=== PATIENT | female | born 1955 | race Caucasian/White ===

== ENCOUNTER 2023-04-23 10:14 | Outpatient (AMB) | payer BC, SELFPAY ==
--- NOTE | 2023-04-23 13:37 | MHC.OFFWIV ---
Intake Vital Signs 04/23/23 13:39 Height 5 ft 8 in Weight 183 lb 9 oz BMI 27.9 BP 120/90 H Blood Pressure Location Lt brachial Position Sitting Pulse 76 Pulse Source Pulse Oximeter Temp 98 F Temp Source Oral Pulse Oximetry (%) 99 Oxygen Delivery Method Room Air Intake Visit Reasons: EP , cough, ear pain, suspects covid ([id number]) Intake Note: Patient here because she has covid as she did a at home test. She needs documentation as she was suppose to leave for a cruise tomorrow and they need proof she is positive for covid. Patient Tobacco Use Status: Never used Tobacco Allergies Sulfa (Sulfonamide Antibiotics) Adverse Reaction (Intermediate, Verified 04/23/23 13:42) Rash IV Contrast Adverse Reaction (Intermediate, Uncoded 04/23/23 13:42) rash Do you need a note to return to daycare/school/sports/work: Yes HPI EP , cough, ear pain, suspects covid ([id number]) HPI Details Patient is a 68-year-old female with a history of asthma that is usually only exacerbated with allergies, who comes to the walk-in clinic a few days after starting with nasal congestion, mild dry cough, ear pressure, postnasal drip, and body aches. She states that she tested positive for COVID at home, but needs lab documentation for her to submit this for reimbursement for her planned cruise tomorrow. She recently came back from [place] and states that she started with symptoms soon after. She denies significant cough, shortness of breath or chest pain or pressure, nausea or vomiting, dizziness or weakness, current myalgias or malaise, current fever or chills, or other significant associated symptoms. [facility] Social History Patient Tobacco Use Status: Never used Tobacco Review of Systems Const All systems reviewed & are unremarkable except as noted in HPI and below Physical Exam Vital Signs: Last Vital Signs Temp 98 F 04/23/23 13:39 Pulse 76 04/23/23 13:39 BP 120/90 H 04/23/23 13:39 Pulse Ox 99 04/23/23 13:39 Oxygen Delivery Method Room Air 04/23/23 13:39 BMI result Body Mass Index 27.9 Const General: cooperative, healthy appearing, comfortable, no acute distress, alert, awake, Physically active and well groomed; No anxious, diaphoretic, intoxicated appearing or poor hygiene Nutritional Appearance: average body habitus Orientation/consciousness: oriented to person Limitations: no limitations HEENT Head: Yes normal to inspection, Yes normocephalic and Yes atraumatic Ears: hearing grossly normal bilaterally, external ears normal, EAC's normal and TM abnormal with fluid behind the TM General nose exam: Normal external nose present, Normal septum present and Nasal discharge present Face and sinus: Yes normal facial exam, Yes sinuses nontender and Yes face symmetric Mouth: Normal oral and palatal mucosa present, lip normal and tongue normal Throat: Yes posterior oropharynx normal, Yes abnormal tonsil (mildly erythematous bilaterally), No peritonsillar mass, No uvular edema and No cobblestoning Eyes General: appearance normal, both eyes and all related structures Neck Neck: Yes normal visual inspection, Yes full ROM, Yes no lymphadenopathy, Yes trachea midline, Yes supple and No anterior neck swelling Chest Chest palpation & inspection: normal palpation of entire chest wall Resp Effort & Inspection: normal respiratory effort, able to speak in complete sentences, normal respiratory pattern, no audible wheezes, Actively coughing (Occasional dry) Quality: dry, respiratory effort not decreased, no grunting, not labored, no nasal flaring, no pursed lip breathing, no respiratory distress, no retractions, no tripod positioning, no use of accessory muscles, No prolonged expiratory phase and symmetric chest movement Auscultation: clear to auscultation bilaterally, no crackles, no rales, no rhonchi, no wheezes, lung sounds not diminished and No rub present Cardio Palpation: normal PMI Rate: regular rate Rhythm: regular rhythm Heart sounds: S1 normal heart sound present and S2 normal heart sound present Skin Other: Good color, warm and dry Neuro General: oriented to person Psych Appearance: grossly normal Mental Status: mental status grossly normal Speech and movement: Normal speech and movement present Affect: normal affect Attitude: cooperative Thought process: Normal thought process present Insight: Good insight present (Psych) Judgement: Good judgement present (Psych) Assessment & Plan Assessment & Plan (1) Viral syndrome: Code(s): B34.9 - Viral infection, unspecified Plan Patient is a 68-year-old female with acute viral syndrome which is mildly exacerbating her asthma, however she states that she does not feel like she needs prednisone at this time, for which I concur. She does not seem to be having an acute attack, and she had only has a mild intermittent cough with no wheezing or signs or symptoms of dyspnea on exam. Patient states that she only presented for evaluation as her ears had some pressure bilaterally, and she needed proof of having COVID for reimbursement of a planned cruise tomorrow. She denies shortness of breath or chest pain, chest pressure, and no significant cough. She is pending PCR testing to backup her rapid COVID test, as well as to rule out flu and RSV. Paxlovid was considered due to her asthma history, but she declines it, as she states that she already has enough GI issues . I did write her for a course of Augmentin in case the pressure in her ears worsens, or she develops fever or chills or other associated symptoms. A note was given to her for the [employer] for her reimbursement. She will follow up as needed if symptoms persist or worsen Orders: Orders SARS-CoV2/FLU/RSV Today R05.9 - Cough, unspecified Medications: New amoxicillin-pot clavulanate 875-125 mg 1 tab PO BID 10 tabs 0RF Coding Level of Care Code Est Pt Level 4 (21710) Diagnoses Viral syndrome B34.9
[2023-04-23 13:39] VITALS: BP 120/90; PULSE 76; TEMP 36.6; O2SAT 99; BMI 27.9
== END 2023-04-23 14:25 | disposition home or self-care (01) ==
PROVIDERS: PCP Internal Medicine; Visit Provider Physician Assistant Medical
DX: B34.9 Viral infection, unspecified (principal)
CPT/HCPCS: 99214

== ENCOUNTER 2023-04-23 15:50 | Outpatient (REF) | payer BC, SELFPAY ==
[2023-04-23 16:43] LABS: Influenza A PCR NEGATIVE (Negative); Influenza B PCR NEGATIVE (Negative); Resp Syncy Virus RNA Qual PCR NEGATIVE (Negative); SARS COV2 PCR INHOUSE POSITIVE (Negative)
== END 2023-04-23 15:51 | disposition home or self-care (01) ==
LOC: HO.HMGCLNP 15:50
PROVIDERS: Visit Provider Physician Assistant Medical
DX: Z11.52 Encounter for screening for COVID-19 (principal); Z20.822 Contact with and (suspected) exposure to COVID-19; R05.9 Cough, unspecified
CPT/HCPCS: 0241U

== ENCOUNTER 2025-02-01 14:50 | Emergency (ER) | payer BC, SELFPAY ==
--- NOTE | ~2025-02-01 | XR_ITS ---
EXAMINATION: X-ray right ankle X-ray left ankle CLINICAL INFORMATION: Fall, deformity COMPARISON: None TECHNIQUE: Right ankle 3 views. Left ankle 3 views. FINDINGS: Right ankle: Acute, mildly displaced fracture of the distal fibular diametaphysis. The fracture plane appears to extend to the level of the syndesmosis. No tibial fracture is seen. Ankle mortise is maintained. No talar dome OCD. The dorsal navicular bone spurring. Plantar calcaneal spur. Lateral soft tissue swelling. Small tibiotalar joint effusion. Left ankle: Acute, transverse mildly distracted/displaced fracture of the lateral malleolus. No tibial fracture is seen. Ankle mortise appears maintained. No talar dome OCD. Small tibiotalar joint effusion. Plantar calcaneal spur. Lateral soft tissue swelling. XR/XR ankle LT 2V IMPRESSION: Right ankle: Acute, mildly distracted/displaced distal fibular diametaphyseal fracture. Left ankle: Acute, mildly distracted/displaced lateral malleolar fracture. Electronically signed by: Gordy Landa MD 02/01/2025 03:46 PM EDT
--- NOTE | ~2025-02-01 | XR_ITS ---
EXAMINATION: X-ray right ankle X-ray left ankle CLINICAL INFORMATION: Fall, deformity COMPARISON: None TECHNIQUE: Right ankle 3 views. Left ankle 3 views. FINDINGS: Right ankle: Acute, mildly displaced fracture of the distal fibular diametaphysis. The fracture plane appears to extend to the level of the syndesmosis. No tibial fracture is seen. Ankle mortise is maintained. No talar dome OCD. The dorsal navicular bone spurring. Plantar calcaneal spur. Lateral soft tissue swelling. Small tibiotalar joint effusion. Left ankle: Acute, transverse mildly distracted/displaced fracture of the lateral malleolus. No tibial fracture is seen. Ankle mortise appears maintained. No talar dome OCD. Small tibiotalar joint effusion. Plantar calcaneal spur. Lateral soft tissue swelling. XR/XR ankle RT 2V IMPRESSION: Right ankle: Acute, mildly distracted/displaced distal fibular diametaphyseal fracture. Left ankle: Acute, mildly distracted/displaced lateral malleolar fracture. Electronically signed by: Gordy Landa MD 02/01/2025 03:46 PM EDT
[2025-02-01 15:05] VITALS: BP 129/81; BP 180/90; PULSE 79; PULSE 90; RESP 14; TEMP 36.6; O2SAT 99; BMI 28.4
--- NOTE | 2025-02-01 16:05 | ED_ITS ---
HPI - Extremity Injury (Lower) General Chief Complaint: Extremity Injury, Lower Stated Complaint: SLIP AND FALL,BILAT ANKLE PAIN PER EMS Time Seen by Provider: 02/01/25 16:03 History of Present Illness ED Provider: Antoine Do MD HPI Narrative: [age] female relatively healthy was going down a flight of steps rolled the left ankle is subsequently planned to the right foot and rolled the right foot. Bilateral lateral malleoli/ankle and foot painful and swollen. Significant pain when bearing weight she feels like she almost passed out due to the pain level. No skin color change of the distal foot Related Data Home Medications ?Medication ?Instructions ?Recorded ?Confirmed albuterol sulfate 90 mcg/actuation inhalation 04/23/23 aerosol inhaler budesonide-formoterol HFA 160 inhalation 04/23/23 mcg-4.5 mcg/actuation aerosol inhaler (Symbicort) carisoprodol 350 mg tablet 350 mg PO BID 04/23/23 montelukast 10 mg tablet 10 mg PO DAILY 04/23/23 Previous Rx's ?Medication ?Instructions ?Recorded amoxicillin 875 mg-potassium 1 tab PO BID #10 tabs clavulanate 125 mg tablet Allergies Allergy/AdvReac Type Severity Reaction Status Date / Time Sulfa (Sulfonamide AdvReac Intermediate Rash Verified 02/01/25 15:10 Antibiotics) IV Contrast AdvReac Intermediate rash Uncoded 02/01/25 15:10 [facility] Social History Social History Patient Tobacco Use Status: Never used Tobacco Smoked in Last 30 Days: No Use of substances other than those prescribed or required for medical reasons: No Advance Directives: Yes Advance Directives Information Provided: No Advance Directives on File: No Do you have a plan to hurt others: No Plan Physical Exam Exam: Exam: GENERAL: Well appearing. No apparent distress. Alert. HEAD/NECK: No visual trauma. EYES: Normal to inspection. No conjunctival erythema. No discharge. ENMT: Hearing grossly normal. External nose normal. RESPIRATORY: Respiratory effort normal. CARDIOVASCULAR: Additional details (Grossly well perfused). SKIN: No jaundice. NEUROLOGICAL: Alert. Moving all extremities x4. Additional details (No gross motor deficits. Normal tone. ). PSYCHIATRIC: Alert. Appearance appropriate for situation. MSK: Bilateral ankles with swelling of the lateral malleoli ecchymosis. Apparent intact talofibular ligaments. Well-perfused feet. No calcaneal tenderness. Ankles grossly stable Vital Signs: Vital Signs: Last Vital Signs Temp 97.9 F 02/01/25 18:15 Pulse 79 02/01/25 18:15 Resp 14 02/01/25 18:15 BP 129/81 02/01/25 18:15 Pulse Ox 99 02/01/25 18:15 O2 Del Method Room Air 02/01/25 18:15 BMI result Body Mass Index 28.4 Medications Administered Discontinued Medications Generic Name Dose Route Start Last Admin Trade Name Freq PRN Reason Stop Dose Admin Acetaminophen 975 mg 02/01/25 16:38 02/01/25 16:50 Acetaminophen 325 Mg Tablet PO 02/01/25 16:39 975 mg ONCE ONE Administration Medical Decision Making Medical Decision Making MDM Narrative: Medical Decision Making: [age] female with ankle roll. No head strike or other trauma. Bilateral ankle roll with bilateral fibular fractures. No unstable fracture of the ankle. Neurovascularly intact feet bilaterally. Walking boots, wheelchair, case management consulted Preliminary Favored Differential Diagnosis: Ankle fracture, sprain among additional considered etiologies Testing Interpreted Independently: ?See below for details Radiology or Lab testing Results Reviewed: ?See below for details Consults: Case management consulted for recommendations for home care and follow up Independent Historians/External Chart Reviews: ?See below for details Social Determinants of Health Impacting MDM/Planning: ?See below for details Discharge Plan Discharge Clinical Impression: Fibula fracture Patient Disposition: Home, Self-Care Instructions: Leg Fracture (ED), Crutch Instructions (ED) Additional Instructions: You suffered a right and left, right is slightly worse than left fibular fracture at the ankle. This is not a weight supporting bone and you can bear weight on both limbs as tolerated. We have provided walking boot for comfort. Keep your legs elevated when you are able to with ice. Use Tylenol or NSAIDs as appropriate with your underlying medical history. Orthopedics can be called to schedule an established follow up Prescriptions: No Action budesonide-formoterol [Symbicort] 160-4.5 mcg/actuation HFA aerosol inhaler inhalation albuterol sulfate 90 mcg/actuation HFA aerosol inhaler inhalation carisoprodol 350 mg tablet 350 mg PO BID montelukast 10 mg tablet 10 mg PO DAILY amoxicillin-pot clavulanate 875-125 mg tablet 1 tab PO BID Qty: 10 0RF Referrals: [facility] Orth[facility] Surgeons [Provider Group] Interventions: ED Discharge Assessment Last Done: 02/01/25 18:15 Discharge Date/Time: 02/01/25 18:27 Print Language: Citizen Of [place]
--- OUTSIDE RECORDS SUMMARY | 2025-02-01 17:02 | XMS_ITS | Patient Health Record ---
Author Organization [facility] Address [address] [place] [address] Care Team Providers Care Scourer Name Role Phone Robby An MD Primary Care Provider Grey Santacruz Unavailable [phone] Allergies Allergen (clinical drug ingredient) Drug/Non Drug Allergy documented on EMR Reaction Allergy Type Onset Date Status sulfamethoxazole / trimethoprim Bactrim rash Drug Allergy Active Biaxin Unknown Drug Allergy Active Cranberry hives Drug Allergy Active erythromycin Erythromycin Unknown Drug Allergy A ctive valacyclovir Valtrex rash Drug Allergy Acti ve azithromycin Azithromycin Unknown Drug Allergy A ctive codeine Codeine headache,nause a Drug Allergy Active Iodinated contrast media (substance) Iodinated Diagnostic Agents headache,hives Drug Allergy Active morphine Morphine vomiting Drug Allergy Active Reason For Referral No Information Medications Medication SIG (Take, Route, Frequency, Duration) Notes Start Date End Date Status Zantac Unknown Fluticasone Propionate HFA 110 MCG/ACT 1 puff Inhalation Twice a day Unknown NexIUM 20 MG 1 capsule Orally Onc e a day; Duration: 30 day(s) Unknown Advil Active Vitamin D3 Active Carisoprodol 350 MG (Schedule IV Drug) TAKE 1 TABLET BY MOUTH 3 TIMES A DAY NEEDED FOR PAIN Oral; Duration: 10 Active Walking Boot/Pneumatic As directed Wear Daily; Duration: Until further notice Not-Taking Biotin Active Ibuprofen 800 MG 1 tablet Orally Thre e times a day; Duration: 30 day(s) Not-Taking Flovent HFA Unknown Singulair Active Symbicort inhaler Active Turmeric Active Albuterol 90mcg prn Acti ve Vitamin B12 Active Folic Acid Active Montelukast Sodium 10 MG TAKE 1 TABLET B Y MOUTH EVERY DAY Oral Active Physical Therapy . . . 2-3x/week; Duration: 3-4 weeks Active Move Free Joint Health Advance Active Rippey-3 Active Voltaren 1 % as directed Externally Active Immunizations Vaccine Route Administration Date Status Comme nts COVID-19 Pfizer BioNTech Vaccine Unknown 02/26/2021 Administered 1st 07/04/20 2nd 07/25/20 Social History Tobacco Use: Social History Observation Description Date Details (start date - stop date) Former Smoker NA - NA Tobacco Use/Smoking Question Answer Notes Are you a: former smoker Additional Findings: Tobacco Non-User Current no n-smoker Alcohol Screen Question Answer Notes Did you have a drink contain ing alcohol in the past year? Yes How often did you have a dri nk containing alcohol in the past year? 2 to 3 times a week (3 points) How many drinks did you have on a typical day when you were drinking in the past year? 1 or 2 drinks (0 point) How often did you have 6 or more drinks on one occasion in the past year? Never (0 point) Points 3 Interpretation Positive Tobacco use other than smoking: Question Answer Notes Are you an other tobacco user? No Plan Of Treatment Pending Test Test Name Order Date X ray : Foot, right 3V 04/19/2012 X ray : Foot, right 3V 10/21/2021 X ray : Foot, right 3V 06/02/2022 [id number]-Tsua Destruction, -08/09/2013 87645-Mtkn Destruction, 04-2410/10/2013 [id number]-Xdef Destruction, 04-2412/24/2013 92676-Mesn Destruction, 04-2403/14/2014 24335-Jhwn Destruction, 04-2402/20/2015 70370-Luto Destruction, 04-2401/20/2011 [id number]-Fhjq Destruction, 04-2403/03/2011 21977-Nrao Destruction, 04-2405/10/2011 30493-Whwd Destruction, 04-2406/09/2011 53521-Btgq Destruction, 04-2407/12/2011 15043-Vyji Destruction, 04-2408/09/2011 54318-Ksyt Destruction, 04-2409/13/2011 92452-Kkay Destruction, 12/06/2011 83633-Orab Destruction, -02/07/2012 23487-Nbkh Destruction, -04/19/2012, J0702- INJECT TENDON ORIGIN/INSER T 06/02/2022,[id number]-WHC TENDON SHEATH/LIGAMENT 1 05/14/2017 Insurance Providers Payer Name Payer Address Payer Phone Subscriber Number Group Number Insured Name Patient Relationship to Insured Coverage Start Date Coverage End Date [employer] 65 Medicare Preferred [address] [place] [address] [id number] Tova Tran lt Self - patient is the insured Medical (General) History Medical History History ICD Code asthma warts scarlet fever glaucoma fibromyalgia corns/calluses broken bones Arthritis Back,Hip,and Knee pain Reflux Mumps Chicken pox Diverticulitis Hiatal hernia chronic sinusitis Surgical History Surgery Date(Month/Year) tubal ligation 1981 orthoscopic knee surgery 11/2015 tonsillectomy colonoscopy 06/2022
--- OUTSIDE RECORDS SUMMARY | 2025-02-01 17:03 | XMS_ITS | Data Portability ---
Author Organization NELDA Art [facility] Address [address] [place] [address] Care Team Providers Care Senior Treasury Analyst Name Role Phone STEPHANY SNOW Primary Care Provider [phone] Assessment No assessment recorded. Plan of Treatment Reminders Order Date Submit Date Provider Last Modified By Organization Details Last Modified Time Details Appointments None recorded. Lab urinalysis , dipstick 2022 023 [email or web address] [facility], [address] [place] [address], [id number], 09:44:59 culture, urine 2022 023 [place] [facility], [address] [place] [address], [place], [address], 3 08:07:29 Referral None recorded. Procedures None recorded. Surgeries None recorded. Imaging None recorded. Medication Orders Macrobid 100 mg capsule 2022 023 [id number], [address] [place], [address], 09:45:03 Patient TargetsNo targets recorded. Patient Instructions Encounter Date Encounter Id Patient Instructions Last Modified By Organization Details Last Modified Time 06/05/2022 [id number] We recommend you get a repeat urinalysis in 2 weeks to ensure that any abnormalities have resolved. If urine abnormalities persist, you will likely need further testing or treatment. We will contact you within 3 to 5 days with the results of your lab test. If you have not heard back from us within that time frame, please feel free to contact our office regarding your results. Go to the Emergency Department immediately if your symptoms worsen or if you develop new symptoms that concern you. Drink plenty of fluids You should follow-up with your PCP in 4-5 days, or at any time if your condition does not improve or worsens. Any acute change should prompt a visit to the nearest Emergency Department. [email or web address] Not available 06/05/2022 09:40:14 Reason for Referral None Reported. Results Created Date Observation Date Name Description Value Unit Range Abnormal Flag Note LastModifiedBy Organization Detail LastModifiedTime 06/05/1906/09/2022 URINE CULTU RE, ROUTI NE urine culture, routine FINAL REPORT abnormal Not Available [facility] ([facility]) [address] [facility], [place], [address], 06/09/2022 14:06:45 06/05/19 23 06/09/2022 URINE CULTU RE, ROUTI NE result 1 ESCHER ICHIA COLI abnormal Cefaz marj <=4 ug/mL Cefaz marj with an YARA <=16 predi cts susce ptibi lity to the oral agent s cefac eloisa, cefdi edy, cefpo doxim e, cefpr ozil, cefur oxime , cepha lexin , and lorac arbef when used for thera py of uncom plica ernesto urina ry tract infec tions due to E. coli, Klebs iella pneum oniae , and Prote us mirab ilis. Great er than 100,0 00 colon y formi ng units per mL Not Available [facility] ([facility]) [address] [facility], [place], [address], 06/09/2022 14:06:45 06/05/1906/09/2022 URINE CULTU RE, ROUTI NE antimicrobia l susceptibili ty COMMEN T S = Susce ptibl e; I = Inter media te; R = Resis tant P = Posit can; N = Negat can MICS are expre ssed in micro grams per mL Antib iotic RSLT# 1 RSLT# 2 RSLT# 3 RSLT# 4 Amoxi cilli n/Cla vulan ic Acid S Ampic illin S Cefep ngozi S Ceftr iaxon e S Cefur oxime S Cipro floxa warren S Ertap enem S Genta micin S Imipe nem S Levof loxac in S Merop enem S Nitro furan toin S Piper acill in/Ta zobac land S Tetra cycli ne S Tobra mycin S Trime thopr im/Casey lfa S Not Available [facility] ([facility]) [address] [facility], [place], [address], 06/09/2022 14:06:45 06/05/19 23 06/05/2022 urina lysis , dipst ick Unknown Analyte Normal = light yellow Not Available susan ureña [address], [place], [address], 06/05/2022 09:13:17 06/05/19 23 06/05/2022 urina lysis , dipst ick Unknown Analyte Yellow Not Available jeanne [address], [place], [address], 06/05/2022 09:13:17 06/05/19 23 06/05/2022 urina lysis , dipst ick Unknown Analyte Normal = clear Not Available susan ureña [address], [place], [address], 06/05/2022 09:13:17 06/05/19 23 06/05/2022 urina lysis , dipst ick Unknown Analyte Clear Not Available jeanne [address], [place], [address], 06/05/2022 09:13:17 06/05/19 23 06/05/2022 urina lysis , dipst ick Unknown Analyte Normal = negati ve Not Available susan ureña [address], [place], [address], 06/05/2022 09:13:17 06/05/19 23 06/05/2022 urina lysis , dipst ick Unknown Analyte Negati ve Not Available susan ureña [address], [place], [place], [address], 06/05/2022 09:13:17 06/05/19 23 06/05/2022 urina lysis , dipst ick Unknown Analyte Normal = Negati ve Not Available susan ureña [address], [place], [address], 06/05/2022 09:13:17 06/05/1906/05/2022 urina lysis , dipst ick Unknown Analyte Negati ve Not Available susan ureña [address], [place], [address], 06/05/2022 09:13:17 06/05/19 23 06/05/2022 urina lysis , dipst ick Unknown Analyte Normal = Negati ve Not Available susan ureña [address], [place], [address], 06/05/2022 09:13:17 06/05/19 23 06/05/2022 urina lysis , dipst ick Unknown Analyte Negati ve Not Available susan ureña [address], [place], [address], 06/05/2022 09:13:17 06/05/19 23 06/05/2022 urina lysis , dipst ick Unknown Analyte Normal = 1.010, 1.015, 1.020 Not Available susan ureña [address], [place], [address], 06/05/2022 09:13:17 06/05/19 23 06/05/2022 urina lysis , dipst ick Unknown Analyte 1.020 Not Available [address], [place], [address], 06/05/2022 09:13:17 06/05/19 23 06/05/2022 urina lysis , dipst ick Unknown Analyte Normal = Negati ve Not Available susan ureña [address], [place], [address], 06/05/2022 09:13:17 06/05/19 23 06/05/2022 urina lysis , dipst ick Unknown Analyte Large Not Available [facility] [address], [place], [address], 06/05/2022 09:13:17 06/05/19 23 06/05/2022 urina lysis , dipst ick Unknown Analyte Normal = 6.5, 7.0, 7.5, 8.0 Not Available [facility] [address], [place], [address], 06/05/2022 09:13:17 06/05/19 23 06/05/2022 urina lysis , dipst ick Unknown Analyte 6.5 Not Available [facility] [address], [place], [address], 06/05/2022 09:13:17 06/05/19 23 06/05/2022 urina lysis , dipst ick Unknown Analyte Normal = Negati ve Not Available susan ureña [address], [place], [address], 06/05/2022 09:13:17 06/05/19 23 06/05/2022 urina lysis , dipst ick Unknown Analyte Negati ve Not Available susan ureña [address], [place], [address], 06/05/2022 09:13:17 06/05/19 23 06/05/2022 urina lysis , dipst ick Unknown Analyte Normal = 0.2, 1.0 Not Available [address], [place], [address], 06/05/2022 09:13:17 06/05/19 23 06/05/2022 urina lysis , dipst ick Unknown Analyte 0.2 E.U./d L Not Available [address] [place] [address], [place], [address], 06/05/2022 09:13:17 06/05/19 23 06/05/2022 urina lysis , dipst ick Unknown Analyte Normal = Negati ve Not Available [address] [place] [address], [place], [address], 06/05/2022 09:13:17 06/05/19 23 06/05/2022 urina lysis , dipst ick Unknown Analyte Negati ve Not Available [address] [place] [address], [place], [address], 06/05/2022 09:13:17 06/05/1906/05/2022 urina lysis , dipst ick Unknown Analyte Normal = Negati ve Not Available [address] [place] [address], [place], [address], 06/05/2022 09:13:17 06/05/19 23 06/05/2022 urina lysis , dipst ick Unknown Analyte Small Not Available [address] [place] [address], [place], [address], 06/05/2022 09:13:17 Result Notes None recorded. Problems Name Problem SNOMED Code Status Onset Date Resolution Date Notes Provider Name and Address Organization Details Recorded Time Asthma 593640514 Active 2022 NELDA Raman - [facility] 09:16:12 Fibromyalgia 838703476 Active 2022 NELDA Raman [facility] 3 09:16:19 Problem Notes None recorded. Procedures Surgical History Date Name Laterality Status Provider Name and Address Organization Details Recorded Time operative procedure on knee completed Jennifer Jj [facility] 06/05/2022 09:19:11 tonsillectomy completed Jennifer Jj [facility] 06/05/2022 09:19:17 ligation of bilateral fallopian tubes completed Jennifer Jj [facility] 06/05/2022 09:19:29 Imaging Results None recorded. Procedure Notes None recorded. Medical Equipment None Reported. Allergies Allergen ID Allergen Name Allergen Category Reaction Reaction Severity Criticality Documentation Date Start Date Code Code System Note Provider Name and Address Organization Details Recorded Time Bactrim medicatio n rash Not available Not available 06/05/2022 71080 9 RxNorm Jennifer huntley [facility] 3 09:14:09 884156 Substance with sulfonami de structure and antibacte rial mechanism of action (substanc e) medicatio n hives Not available Not available 06/05/2022 65941 8003 SNOMED Jennifer huntley [facility] 3 09:14:21 Medications Name Sig Start Date Stop Date Status Note LastModified by Organization Details LastModified Time carisoprodo l 350 mg tablet TAKE 1 TABLET BY MOUTH TWICE A DAY active Not Available Not Available No t Available amoxicillin 500 mg capsule TAKE 2 CAPSULES BY MOUTH TWICE A DAY FOR 14 DAYS 06/05 completed Not Available Not Available Not Available prednisone 10 mg tablet TAKE 4 TABLETS FOR 3 DAYS, 3 TABLETS FOR 3 DAYS, 2 TABLETS FOR 3 DAYS AND 1 TABLET FOR 3 DAYS 06/05 completed Not Available Not Available Not Available azithromyci n 250 mg tablet TAKE 2 TABLETS BY MOUTH TODAY, THEN TAKE 1 TABLET DAILY FOR 4 DAYS 06/05 completed Not Available Not Available Not Available clarithromy warren 500 mg tablet TAKE 1 TABLET BY MOUTH EVERY 12 HOURS FOR 14 DAYS 06/05 completed Not Available Not Available Not Available ondansetron 8 mg disintegrat ing tablet TAKE 1 TABLET BY MOUTH 3 TIMES A DAY NEEDED FOR 7 DAYS active Not Available Not Available No t Available Macrobid 100 mg capsule Take 1 capsule every 12 hours by oral route with meals for 7 days. 2022 active Not Available Not Available Not Avai lable montelukast 10 mg tablet TAKE 1 TABLET BY MOUTH EVERY DAY active Not Available Not Available No t Available albuterol sulfate HFA 90 mcg/actuati on aerosol inhaler TAKE 2 PUFFS EVERY 6 HOURS NEEDED FOR WHEEZING FOR 90 DAYS active Not Available Not Available No t Available Symbicort 160 mcg-4.5 mcg/actuati on HFA aerosol inhaler INHALE 2 PUFFS BY MOUTH TWICE A DAY active Not Available Not Available No t Available Symbicort 80 mcg-4.5 mcg/actuati on HFA aerosol inhaler INHALE 2 PUFFS TWICE A DAY 06/05 completed Not Available Not Available Not Available Muriel Franco [facility] spacer USE DIRECTED active Not Available Not Available No t Available Flowflex COVID-19 Antigen Home Test kit FOLLOW PACKAGE INSTRUCTI ONS INSTRUCTE D 06/05 completed Not Available Not Available Not Available Paxlovid 300 mg (150 mg x 2)-100 mg tablets in a dose pack TAKE 3 TABLETS TWICE A DAY BY MOUTH FOR 5 DAYS. 06/05 completed Not Available Not Available Not Available Vitals Date Recorded Body height Body mass index (BMI) Body weight Pain severity - 0-10 verbal numeric rating [Score] - Reported Oxygen saturation Oxygen saturation in Arterial blood by Pulse oximetry Heart rate Respiratory rate Body temperature Systolic And Diastolic Provider Name and Address Organization Details Last Updated DateTime 3 172.72 cm 27.4 kg/m2 34814.6 3 g 3 98 % 98 % 72 /min 18 /min 98 [degF] 123/82 mm[Hg] Jennifer LUTZ - [facility] 3 09:21:26 Social History Question Answer Notes LastModified by Organizat ion Details LastModified Time Tobacco Smoking Status Former Smoker NELDA Raman [facility] 06/05/2022 09:17:25 When Did You Quit Smoking? 16+yearssinc elastcigaret te Information not available 06/05/2022 Have You Recently Traveled Abroad? No Information not available 06/05/2022 Sex: Unknown Functional Status Question Answer Note LastModified by Organizat ion Details LastModified Time How many times per week do you consume alcohol? Less than 1 time per week Information not available 06/05/2022 Do you use any illicit or recreational drugs? No Information not available 06/05/2022 Do you or have you ever used any other forms of tobacco or nicotine? No Information not available 06/05/2022 What is your level of alcohol consumption? Occasional Information not available 06/05/2022 Mental Status None recorded. Family History Relationship Description Onset Age of this Age Resolved Age Notes LastModified by Organization Details LastModified Time Father Malignant neoplasm of lung emonfette Not available 2022 09:16:49 Mother Malignant neoplasm of lung emonfette Not available 2022 09:16:49 Brother Malignant neoplasm of lung emonfette Not available 2022 09:17:35 Sister Disease of liver emonfette Not available 2022 09:17:57 Sister Myocardial infarction emonfette Not available 06/05 09:18:07 Sister Guillain-Bar r syndrome emonfette Not available 2022 09:18:17 Medical History No medical history recorded. Gynecological HistoryNo gynecological history recorded. Obstetrics History GPAL:G 0 P 0 0 0 0 Immunizations Vaccine Type Date Status Note Provider Nam e and Address Organization Details Recorded Time zoster recombinant 0 completed Jennifer Jj null, PA - [facility] 06/05/2022 09:13:47 zoster recombinant 0 completed Jennifer Byrnese null, PA - [facility] 06/05/2022 09:13:47 COVID-19, mRNA, LNP-S, PF, 30 mcg/0.3 mL dose 1 completed Jennifer Jj null, PA - [facility] 06/05/2022 09:13:47 COVID-19, mRNA, LNP-S, PF, 30 mcg/0.3 mL dose 1 completed Jennifer Byrnese null, PA - [facility] 06/05/2022 09:13:47 Pneumococcal conjugate PCV20, polysaccharide [id number] conjugate, adjuvant, PF 2 completed Jennifer Jj null, PA - [facility] 06/05/2022 09:13:47 Influenza, split virus, trivalent, preservative 2 completed Jennifer Louisfette null, PA - [facility] 06/05/2022 09:13:47 Influenza, split virus, trivalent, preservative 1 completed Jennifer Monfette null, PA - [facility] 06/05/2022 09:13:47 Influenza, split virus, quadrivalent, PF 0 completed Jennifer Monfette null, PA - [facility] 06/05/2022 09:13:47 Influenza, split virus, quadrivalent, PF 1 completed Jennifer Monfette null, PA - [facility] 06/05/2022 09:13:47 Past Encounters Encounter ID Performer Location Encounter Start Date Encounter Closed Date Diagnosis/Indication Diagnosis SNOMED-CT Code Diagnosis ICD10 Code Diagnosis IMO Codes Diagnosis [place] [id number] [place] [address] [address] 06/05/2022 08:22:48 06/05/2022 09:47:02 Acute urinary tract infection 866027136 N39.0 Health Concerns Section Related Observation LastModified by Organization Detai ls LastModified Time None Recorded Concern Status LastModified by Organization Details LastModified Time None Recorded Advance Directives Directive None Recorded Payers Insurance Date Sequence Insurance Name Policy Number Policy Peacock Covered Member ID Peacock Member ID Guarantor Name 07/02/2022 1 [facility]: MEDICARE PPO BLUE (MEDICARE REPLACEMENT PPO) [id number] Tova Rosario [id number] Tova Rosario Notes Date Note Type Note Provider Name and Address Organization Details Recorded Time 06/05/2022 text/html Urinary Complain t FemaleReported by PatientUrinary problemsFor uti symptoms, patient reportspain during urination,urgency,urina ry frequency, andflank painbut reportsno blood in the urine,no vaginal discharge,no fever/chills,no incontinence,no recurrent uti, andno known exposure to std. For source of patient information, patient reportsinformation obtained from patientandpatient arrived at urgent care ambulatory. For severity, patient reportsmoderate. For duration, patient reports2 days. For modifying factors, patient reportsnothing gives relief.frequency and urgency x 2 day. denies any fever or fever with chills, denies any History of renal stone or bladder issues. frequency and urgency x 1 day. denies any fever or fever with chills, denies any History of renal stone or bladder issues. Sukhi Ortiz NP [address] [place], [address], [place] - [facility] 06/05/2022 09:45:42 OBGyn Episode No OBEpisode recorded.
--- OUTSIDE RECORDS SUMMARY | 2025-02-01 17:03 | XMS_ITS | Clinical Summary ---
Author Organization [facility] Address [address] [place] [address] Care Team Providers Care Pharm Spec Name Role Phone Robby An MD Primary Care Provider [phone] Social History Tobacco Use Types Packs/Day Years Used Date Smoking Tobacco: Never Assessed Comments Unknown Sex and Gender Information Value Date Recorded Sex Assigned at Not on file Legal Sex Female 3:04 PM EST Gender Identity Not on file Sexual Orientation Not on file Plan of Treatment Upcoming Encounters Date Type Department Care Team (Late st Contact Info) Description 05/22/2025 1:00 PM EST Office Visit Gastroenterology - [address] [place] [phone] Wendy Espino PA [address] [place] [address] Health Maintenance Due Date Last Done Comments Breast Cancer Screening 1955 Colorectal Cancer Screening: Colonoscopy 1955 DTaP,Tdap,and Td Vaccines (1 - Tdap) 1975 Pneumococcal Vaccine: 50+ Ye ars (1 of 1 - PCV) 2006 Zoster Vaccines (1 of 2) 2006 Falls Risk Assessment 03/10/2022 Hepatitis C Screening 03/10/2022 Medicare Annual Wellness Visit 03/10/2022 Osteoporosis Screening (Bone Density Screening) 03/10/2022 Social Influencers of Health Screening 03/10/2022 Depression Screening 04/11/2024 COVID-19 Vaccine (1 - 2023-2 5 season) 2024 Influenza Vaccine (#1) 2024 RSV Immunization Adult Patie nts (1 - 1-dose 75+ series) 2031 HIB Vaccines Aged Out No longer eligi ble based on patient's age to complete this topic HPV Vaccines Aged Out No longer eligi ble based on patient's age to complete this topic Hepatitis A Vaccines Aged Out No long er eligible based on patient's age to complete this topic Hepatitis B Vaccines Aged Out No long er eligible based on patient's age to complete this topic IPV Vaccines Aged Out No longer eligi ble based on patient's age to complete this topic MMR Vaccines Aged Out No longer eligi ble based on patient's age to complete this topic Meningococcal ACWY Vaccine Aged Out N o longer eligible based on patient's age to complete this topic Meningococcal B Vaccine Aged Out No l onger eligible based on patient's age to complete this topic RSV Immunization Patients Un rojas 20 months Aged Out No longer eligible b ased on patient's age to complete this topic Varicella Vaccines Aged Out No longer eligible based on patient's age to complete this topic Insurance BLUE CROSS - [place] MEDICARE ADVANTAGE Care Teams Pharm Spec Relationship Specialty Start Date End Date Robby An MD [address] [place] [address] PCP - General Internal Medicine 12/24/24
--- OUTSIDE RECORDS SUMMARY | 2025-02-01 17:03 | XMS_ITS ---
Author Name [facility] Organization Unknown Care Team Organization Name Specialty Phone Email Start Date End Da owen [facility], [facility] 08/09/2023 06/08/19 25
[2025-02-01 18:15] VITALS: BP 129/81; PULSE 79; RESP 14; TEMP 36.6; O2SAT 99
== END 2025-02-01 18:27 | disposition home or self-care (01) ==
PROVIDERS: Emergency Provider Emergency Medicine; PCP Internal Medicine
DX: S82.402A Unspecified fracture of shaft of left fibula, initial encounter for closed fracture (principal); S82.401A Unspecified fracture of shaft of right fibula, initial encounter for closed fracture; M25.572 Pain in left ankle and joints of left foot; M25.571 Pain in right ankle and joints of right foot; M79.672 Pain in left foot; M79.671 Pain in right foot; W10.8XXA Fall (on) (from) other stairs and steps, initial encounter; Y93.89 Activity, other specified; Y92.9 Unspecified place or not applicable; Y99.9 Unspecified external cause status
CPT/HCPCS: 73600; 99283; 99284

== ENCOUNTER → 2025-02-01 15:36 | Outpatient (BNV) | payer BC, SELFPAY | PROVIDERS: Emergency Provider Emergency Medicine; PCP Internal Medicine; Visit Provider Radiology Diagnostic Ultrasound | DX: S82.62XA Displaced fracture of lateral malleolus of left fibula, initial encounter for closed fracture (principal); S82.831A Other fracture of upper and lower end of right fibula, initial encounter for closed fracture; W19.XXXA Unspecified fall, initial encounter | CPT/HCPCS: 73600 ==